=== PATIENT | male | born 1975 | race Caucasian/White ===

== ENCOUNTER 2021-06-08 09:17 | Emergency (ER) | payer SELFPAY ==
[~2021-06-08] VITALS: Ht 182.9 cm; Wt 91.5 kg
[~2021-06-08 09:17] MED LIST: DOXY100T PO; OXYC1TAB15 PO
[2021-06-08 10:45] LABS: BASO # 0.1 x10^3/uL (0.0-0.2); BASO % 1 % (0-3); EOS # 0.3 x10^3/uL (0.0-0.7); EOS % 3 % (0-3); HEMATOCRIT 43.5 % (39.0-53.0); HEMOGLOBIN 14.8 g/dL (13.0-17.5); LYMPH # 2.3 x10^3/uL (1.0-4.8); LYMPH % 26 % (24-48); MEAN CORPUSCULAR HEMOGLOBIN 31 pg (25-35); MEAN CORPUSCULAR HGB CONC 34 g/dL (31-37); MEAN CORPUSCULAR VOLUME 92 fL (79-100); MONO # 0.7 x10^3/uL (0.0-1.1); MONO % 8 % (0-9); NEUT # 5.3 x10^3/uL (1.8-7.7); NEUT % 62 % (31-73); PLATELET COUNT 293 x10^3/uL (140-400); RED BLOOD COUNT 4.71 x10^6/uL (4.30-5.70); RED CELL DISTRIBUTION WIDTH 13.2 % (11.5-14.5); WHITE BLOOD COUNT 8.6 x10^3/uL (4.0-11.0)
[2021-06-08] MEDS ORDERED: KETOROLAC 15 MG/ML VIAL. IVP ONE (10:45)
[2021-06-08 10:49] LABS: CALCIUM 8.3 mg/dL (8.5-10.1); CREATININE 1.2 mg/dL (0.7-1.3); GFR 64.9; POTASSIUM 4.2 mmol/L (3.5-5.1)
--- NOTE | 2021-06-08 11:30 | PHYS DOC ---
Past Medical History Additional Past Medical Histor: Hepatitis C Past Surgical History: No Surgical History Smoking Status: Current Every Day Smoker Alcohol Use: Occasionally General Adult EDM: Chief Complaint: SKIN PROBLEM HPI: HPI: Patient is a 45-year-old male that presents today with open weeping wounds on his face and his hands and on his legs. Patient states he was here early in April and was admitted for a draining wound on his abdomen, he states he was discharged but unable to get his medications filled due to transportation and financial issues. Patient presents today with increased pain in his wounds along with drainage in these wounds as well. Patient states he feels chilled, but reports no fever due to the inability to take a temperature. Patient is currently living at the [facility] on [address]. Review of Systems: Review of Systems: Constitutional: chills. [] Eyes: Denies change in visual acuity. [] HENT: Denies nasal congestion or sore throat. [] Respiratory: Denies cough or shortness of breath. [] Cardiovascular: Denies chest pain or edema. [] GI: Denies abdominal pain, nausea, vomiting, bloody stools or diarrhea. [] : Denies dysuria. [] Musculoskeletal: Denies back pain or joint pain. [] Integument: Open draining wounds on face, bilateral hands, healed wound on left lower leg Neurologic: Denies headache, focal weakness or sensory changes. [] Endocrine: Denies polyuria or polydipsia. [] Lymphatic: Denies swollen glands. [] Psychiatric: Denies depression or anxiety. [] Heart Score: C/O Chest Pain: N/A Risk Factors: Risk Factors: DM, Current or recent (<one month) smoker, HTN, HLP, family history of CAD, obesity. Risk Scores: Score 0 - 3: 2.5% MACE over next 6 weeks - Discharge Home Score 4 - 6: 20.3% MACE over next 6 weeks - Admit for Clinical Observation Score 7 - 10: 72.7% MACE over next 6 weeks - Early Invasive Strategies Current Medications: Current Medications Medications (Trade) Dose Ordered Sig/Ronan Start Time Stop Time Status Last Admin Dose Admin Ketorolac Tromethamine (Toradol 15mg Vial) 15 mg 1X ONCE 06/08/21 10:45 06/08/21 10:46 DC 06/08/21 10:46 15 MG Allergies: Allergies: Allergies Coded Allergies Type Severity Reaction Last Updated Verified Penicillins Allergy Intermediate Hives 05/01/21 Yes I S O L A T I O N *CONTACT* Allergy Unknown 05/05/21 Yes Physical Exam: PE: Constitutional: Well developed, well nourished, no acute distress, non-toxic appearance. [] HENT: Patient has short de [place] santos, multiple open wounds with green-yellow drainage coming from them Eyes: PERRLA, EOMI, conjunctiva normal, no discharge. [] Neck: Normal range of motion, no tenderness, supple, no stridor. [] Cardiovascular:Heart rate regular rhythm, no murmur [] Lungs & Thorax: Bilateral breath sounds clear to auscultation [] Abdomen: Bowel sounds normal, soft, no tenderness, no masses, no pulsatile masses. [] Skin: Warm, dry, no erythema, no rash. [] Back: No tenderness, no CVA tenderness. [] Extremities: Left hand to open draining wounds on the left thumb, right thumb has 1 wound that appears to be healing no signs of infection, left lower leg has a 1 cm x 1 cm wound that is healing with erythema noted around the wound Neurologic: Alert and oriented X 3, normal motor function, normal sensory function, no focal deficits noted. [] Psychologic: Affect normal, judgement normal, mood normal. [] Current Patient Data: Labs: Laboratory Tests Test 06/08/21 10:30 White Blood Count 8.6 x10^3/uL (4.0-11.0) Red Blood Count 4.71 x10^6/uL (4.30-5.70) Hemoglobin 14.8 g/dL (13.0-17.5) Hematocrit 43.5 % (39.0-53.0) Mean Corpuscular Volume 92 fL (79-100) Mean Corpuscular Hemoglobin 31 pg (25-35) Mean Corpuscular Hemoglobin Concent 34 g/dL (31-37) Red Cell Distribution Width 13.2 % (11.5-14.5) Platelet Count 293 x10^3/uL (140-400) Neutrophils (%) (Auto) 62 % (31-73) Lymphocytes (%) (Auto) 26 % (24-48) Monocytes (%) (Auto) 8 % (0-9) Eosinophils (%) (Auto) 3 % (0-3) Basophils (%) (Auto) 1 % (0-3) Neutrophils # (Auto) 5.3 x10^3/uL (1.8-7.7) Lymphocytes # (Auto) 2.3 x10^3/uL (1.0-4.8) Monocytes # (Auto) 0.7 x10^3/uL (0.0-1.1) Eosinophils # (Auto) 0.3 x10^3/uL (0.0-0.7) Basophils # (Auto) 0.1 x10^3/uL (0.0-0.2) Sodium Level 139 mmol/L (136-145) Potassium Level 4.2 mmol/L (3.5-5.1) Chloride Level 105 mmol/L (98-107) Carbon Dioxide Level 26 mmol/L (21-32) Anion Gap 8 (6-14) Blood Urea Nitrogen 12 mg/dL (8-26) Creatinine 1.2 mg/dL (0.7-1.3) Estimated GFR (Cockcroft-Gault) 64.9 Glucose Level 100 mg/dL (70-99) H Calcium Level 8.3 mg/dL (8.5-10.1) L Laboratory Tests 06/08/21 10:30 Laboratory Tests 06/08/21 10:30 Vital Signs: Vital Signs Date Time Temp Pulse Resp B/P (MAP) Pulse Ox O2 Delivery O2 Flow Rate FiO2 06/08/21 12:24 51 18 153/91 (111) 98 Room Air 06/08/21 11:57 44 14 147/85 (105) 98 Room Air 06/08/21 11:27 44 15 143/84 (103) 98 Room Air 06/08/21 10:57 54 23 163/80 (107) 98 Room Air 06/08/21 10:05 132/89 (103) Vital Signs Date Time Temp Pulse Resp B/P (MAP) Pulse Ox O2 Delivery O2 Flow Rate FiO2 06/08/21 10:57 54 23 163/80 (107) 98 Room Air EKG: EKG: [] Radiology/Procedures: Radiology/Procedures: [] Course & Med Decision Making: Course & Med Decision Making Pertinent Labs and Imaging studies reviewed. (See chart for details) Spoke to patient about refilling medications patient states he does have the financial means to get prescriptions filled, will give him written prescriptions for Keflex and mupirocin. Patient can take Tylenol and/or ibuprofen as needed for pain, follow-up with one of the clinics listed in the brochure that I have given you or one of the [facility] physicians. Return to the emergency department if you have fever and chills, wounds become more infected with increased redness, and drainage, or have any other concerns. [] Dragon Disclaimer: Dragon Disclaimer: This electronic medical record was generated, in whole or in part, using a voice recognition dictation system. Departure Departure Impression: Primary Impression: Cellulitis Qualified Codes: L03.211 - Cellulitis of face Disposition: HOME / SELF CARE / HOMELESS Condition: STABLE Referrals: NO PCP (PCP) Patient Instructions: Cellulitis Additional Instructions: Keep wounds clean and dry using some antibacterial soap such as Dial twice daily Apply cream 3 times daily to affected areas on the face and hands Take antibiotics orally for 10 full days Return to the emergency department for fever and chills, increased drainage and redness and pain in the wound. Follow-up with one of the clinics in the brochure that was provided or one of the [facility] primary care physicians Take Tylenol and/or ibuprofen [id number] as needed for pain STEFAN RM APRN Jun 08, 2021 11:30
[2021-06-08 12:24] VITALS: BP 153/91
[2021-06-08 12:25] LABS: AMPHETAMINE/METHAMPHETAMINE NEG (NEG); BARBITURATES NEG (NEG); BENZODIAZEPINES NEG (NEG); COCAINE NEG (NEG)
[2021-06-08 12:26] LABS: CANNABINOIDS NEG (NEG); METHADONE NEG (NEG); OPIATES NEG (NEG); PHENCYCLIDINE NEG (NEG)
== END 2021-06-08 12:25 | disposition home or self-care (01) ==
LOC: ER 09:17
DX: L03.211 Cellulitis of face (principal); F17.200 Nicotine dependence, unspecified, uncomplicated; Z88.0 Allergy status to penicillin; Z91.041 Radiographic dye allergy status
CPT/HCPCS: 36415; 80048; 80307; 85025; 85651; 96374; 99285; J1885